=== PATIENT | male | born 1965 | race Caucasian/White ===

== ENCOUNTER 2018-07-02 17:49 | Emergency (ER) | payer SELFPAY ==
[~2018-07-02] VITALS: Ht 175.3 cm; Wt 78.5 kg
[2018-07-02 17:56] VITALS: BP 140/86; Ht 175.3 cm; Wt 78.5 kg
== END 2018-07-02 20:30 | disposition home or self-care (01) ==
LOC: ED 17:49
PROC: 3E0234Z Introduction of Serum, Toxoid and Vaccine into Muscle, Percutaneous Approach (ICD-10-PCS; principal; 2018-07-02)
DX: S91.332A Puncture wound without foreign body, left foot, initial encounter (principal); W45.0XXA Nail entering through skin, initial encounter; Y93.89 Activity, other specified; Y92.9 Unspecified place or not applicable
CPT/HCPCS: 90715